=== PATIENT | female | born 1995 | race Caucasian/White ===

== ENCOUNTER 2024-02-04 10:06 | Emergency (ER) | payer OTHER, SELFPAY ==
[2024-02-04 10:14] VITALS: BP 150/100
--- NOTE | 2024-02-04 11:06 | ED.GENMED ---
History of Present Illness
<Alyce Devlin PA-C - Last Filed: 02/04/24 15:42>
General
Chief Complaint: Throat Problem
Source: patient and family
Exam Limitations: none
Time Seen by Provider: 02/04/24 11:03
Nursing documentation reviewed up to this point in time: agreed with
Travel History
Have you had any contact with someone who has COVID-19?: No
Do you have any symptoms of coronavirus? Fever > 100 degrees, chills, cough, shortness of breath, sore throat, loss of taste or smell, muscle aches, or headache?: No
History of Present Illness
History of Present Illness:
This is a 28 y/o female with no past medical history presenting to the ER today with sore throat and chest pain for the past 3 days. Patient states that when she woke up on Friday, she started to have a sore throat but thought nothing of it.
Then, she started to develop a lot of pain with swallowing, and she felt this pain in her chest. She also feels this pain when she takes a deep breath. She never had anything like this before. She also has runny nose and mild cough. She also has
associated mouth pain, molar pain, and mild jaw pain. She denies shortness of breath. She denies any headaches, nausea, vomiting. She states that she saw urgent care yesterday, and they tested her for strep which was negative. She was started on
a Z-Rocael at that time and is currently on day 2. She denies any sick contacts, denies any allergies to medications. She states that she started seeing a new boyfriend recently, but denies any chance of STD/STIs.
Past History
<Alyce Devlin PA-C - Last Filed: 02/04/24 15:42>
Past History
ED Past Medical History: None
ED Past Surgical History: None
Patient has exhibited threatening behavior?: No
Social History
Living: with family
Review of Systems
<Alyce Devlin PA-C - Last Filed: 02/04/24 15:42>
Review of Systems
All Other Systems: ROS reviewed and negative except as documented in HPI and ROS
Phy Exam
<Alyce Devlin PA-C - Last Filed: 02/04/24 15:42>
Physical Exam
Physical Exam:
General: Patient is well-appearing and in no acute distress
Skin: Warm and dry, no rashes or lesions
Head: normocephalic, atraumatic
Eyes: no conjunctival exudates, ROMs intact
Ears: no drainage from the external ear canals, no TM bulging or erythema
Throat: Pharyngeal erythema with 2 vesicular lesions, tonsillar hypertrophy, left sided white tonsillar exudates. No peritonsillar abscess. No uvular deviation. No trismus.
Neck: right sided anterior cervical lymphadenopathy, mobile, painful to palpation
Cardiac: regular rate and rhythm, no murmurs. no tenderness to palpation of external chest wall
Pulm: normal respiratory effort, no wheezes, rales, or rhonchi
Abdomen: no tenderness to palpation
Neuro: AAOx3.
Course
<Alyce Devlin PA-C - Last Filed: 02/04/24 15:42>
Orders/Labs/Results
Orders:
Orders
02/04/24 11:27
Electrocardiogram (*1) Urgent
Reason for Study: Chest Pain
EKG- Treatment ONCE
02/04/24 11:28
CR Chest - 2 Views Urgent
Comment:
Reason For Exam: chest pain
02/04/24 11:50
Complete Blood Count/With Diff Urgent
Comprehensive Metabolic Panel Urgent
Monotest Urgent
Rapid Strep Group A Urgent
CHRISTIAN Source: Throat/Pharynx
Specimen Description:
Date Specimen was Collected: 02/04/24
Time Specimen was Collected: 11:35
02/04/24 12:52
0.9% Sodium Chloride 1000 ml [Nss] 1,000 ml IV BOLUS
Dexamethasone Sod Phosphate [Decadron] 10 mg IV NOW STA
Ketorolac [Toradol] 15 mg IV NOW STA
02/04/24 13:04
Herpes Culture Reflex - Typing Urgent
CHRISTIAN Source: Lesion
Specimen Description:
Source:: THROAT/PHARYNX
02/04/24 13:31
Sucralfate Suspension [Carafate Suspension] 1 gm PO NOW STA
02/04/24 14:26
Ketorolac [Toradol] 15 mg IV NOW STA
Abnormal Lab Results
02/04/24
11:50
Absolute Monos (auto) 0.8 H 10^3/uL
(0.1-0.6)
Monocytes % 10.8 H %
(1.7-9.3)
02/04/24 11:50
02/04/24 11:50
Vital Signs
Initial and Last Documented VS:
Initial Vital Signs
Temp Pulse Resp BP Pulse Ox
99.3 F 114 20 150/100 97
02/04/24 10:14 02/04/24 10:14 02/04/24 10:14 02/04/24 10:14 02/04/24 10:14
Last Documented Vital Signs
Temp Pulse Resp BP Pulse Ox
99.3 F 114 20 150/100 97
02/04/24 10:14 02/04/24 10:14 02/04/24 10:14 02/04/24 10:14 02/04/24 10:14
Miladlt;Jw Burkett, DO - Last Filed: 02/04/24 14:17>
Orders/Labs/Results
Orders:
Orders
02/04/24 11:27
Electrocardiogram (*1) Urgent
Reason for Study: Chest Pain
EKG- Treatment ONCE
02/04/24 11:28
CR Chest - 2 Views Urgent
Comment:
Reason For Exam: chest pain
02/04/24 11:50
Complete Blood Count/With Diff Urgent
Comprehensive Metabolic Panel Urgent
Monotest Urgent
Rapid Strep Group A Urgent
CHRISTIAN Source: Throat/Pharynx
Specimen Description:
Date Specimen was Collected: 02/04/24
Time Specimen was Collected: 11:35
02/04/24 12:52
0.9% Sodium Chloride 1000 ml [Nss] 1,000 ml IV BOLUS
Dexamethasone Sod Phosphate [Decadron] 10 mg IV NOW STA
Ketorolac [Toradol] 15 mg IV NOW STA
02/04/24 13:04
Herpes Culture Reflex - Typing Urgent
CHRISTIAN Source: Lesion
Specimen Description:
Source:: THROAT/PHARYNX
02/04/24 13:31
Sucralfate Suspension [Carafate Suspension] 1 gm PO NOW STA
02/04/24 14:26
Ketorolac [Toradol] 15 mg IV NOW STA
Abnormal Lab Results
02/04/24
11:50
Absolute Monos (auto) 0.8 H 10^3/uL
(0.1-0.6)
Monocytes % 10.8 H %
(1.7-9.3)
02/04/24 11:50
02/04/24 11:50
Vital Signs
Initial and Last Documented VS:
Initial Vital Signs
Temp Pulse Resp BP Pulse Ox
99.3 F 114 20 150/100 97
02/04/24 10:14 02/04/24 10:14 02/04/24 10:14 02/04/24 10:14 02/04/24 10:14
Last Documented Vital Signs
Temp Pulse Resp BP Pulse Ox
99.3 F 114 20 150/100 97
02/04/24 10:14 02/04/24 10:14 02/04/24 10:14 02/04/24 10:14 02/04/24 10:14
<Alyce Devlin PA-C - Last Filed: 02/04/24 15:42>
MDM/Problems Addressed
Differential Diagnosis Includes:
ddx viral pharyngitis, strep pharyngitis, herpes infection, herpes esophagitis, pneumonia, costochondritis, gastritis
MDM/Problems Addressed:
sore throat
Chronic conditions affecting care:
n/a
Acute Exacerbation and/or Progression of Chronic Illness:
n/a
<Alyce Devlin PA-C - Last Filed: 02/04/24 15:42>
*Radiology
Radiology exam reviewed: preliminary read by ED provider (no acute cardiopulmonary disease)
*Pulse Oximetry
Patient hypoxic: no
*EKG
Interpreted by ED Provider?: Yes
EKG Intrepretation Date: 02/04/24
Interpretation: normal
Comparison EKG: no comparison EKG present
Heart Rate: 90
Rate: normal
Rhythm: sinus
[place]: normal axis
Interval: normal interval, normal QT interval and normal [place] interval
QRS Pattern: normal QRS
*Critical Care Note
Total Time (30-74mins, 75-104mins- exclusive of procedures): Not Applicable
Data Reviewed
Review of Other/Old Records Reveals: Records (reviewed ER physician documentation from 06/13/18) and Discharge Summary (no discharge summaries in [facility] to review )
Source: patient, records and family
Further Testing Considered But Not Given:
Considered CT neck for RN BABY evaluation however no obvious RN BABY on exam, no ulna deviation, no trismus
<LORENZO Davies Last Filed: 02/04/24 15:42>
Patient Management
Escalation/DeEscalation of care consider admission/obs:
This is a 28 y/o female with no past medical history presenting to the ER today with sore throat and chest pain for the past 3 days. Physical examination reveals anterior cervical lymphadenopathy, tonsillar hypertrophy and exudates, as well as
scattered vesicular lesion within the mouth and throat. EKG normal sinus rhythm, CXR reveals no acute intracranial abnormality, and monospot testing, strep throat testing is negative. HSV testing pending. Patient's symptoms improved with IV fluids
and toradol, however patient still has some pain. Patient's current symptoms likely reflect acute viral illness but will have patient follow up with ENT/GI to evaluate further for infections esophagitis/esophageal spasm, etc. Patient will be sent
home with steroid burst and carafate, stable for discharge.
ED Attending Note
<Alyce Devlin PA-C - Last Filed: 02/04/24 15:42>
-
Portions of this chart may have been created with voice recognition software.� Occasional wrong word or��sound alike� substitutions may have occurred due to the inherent limitations of voice recognition software.
<Jw Burkett DO - Last Filed: 02/04/24 14:17>
ED Attending Note
Patient seen and examined by attending physician: Yes
I performed the substantive portion of visit, reviewed & personally made and approve the management plan that is documented in note by myself or LOREE.: Yes
I performed a history and physical exam of patient and discussed management with resident, I reviewed resident's note and agree with documented findings and plan of care.: Yes
ED Attending Note:
I evaluated the patient at bedside. The patient's labs are normal including negative mono. She was given IV fluids and Toradol and Decadron. Will start steroids. She is already on azithromycin and will also try Carafate. She does have
left-sided exudate with no evidence of RN BABY on posterior oropharyngeal exam.
Discharge Plan
Departure
Patient Disposition: Home (Routine Discharge)
Date of Disposition: 02/04/24
Time of Disposition: 15:20
Patient with high blood pressure during this ER visit?: Yes
Condition: Good
Discharge Problem:
Chest pain, Pharyngitis
Instructions: Sore throat in adults, Chest Pain (DC)
Prescriptions:
New
sucralfate [Carafate] 100 mg/mL suspension
1 g PO TID Qty: 400 0RF
prednisone 20 mg tablet
40 mg PO DAILY 5 Days Qty: 10 0RF
No Action
norethindrone-e.estradiol-iron [Blisovi 24 Fe] 1 EACH tablet
1 ea PO DAILY
Referrals:
Evelyn Judge DO [Family Provider] -
Bina Jamison MD [Active] - Call in 1-3 days for appt
Cayetano Vasquez MD [Active] - Call in 1-3 days for appt
Activity Restrictions/Additional Instructions:
Please take 2 prednisone tablets once daily for 5 days (for a total of 40 mg per day).
We have also sent carafate to your pharmacy which you can take 1 g three times a day as needed for pain.
Please finish your azithromycin course prescribed by urgent care.
You will receive a call from GI office to set up an appointment. Please follow up.
We have also provided you with a referral for ENT.
Interventions
Interventions:
*Risk Screen - Suicide Last Done: 02/04/24 11:50
*General Assessment Last Done: 02/04/24 11:50
*Neglect/Abuse Screening Last Done: 02/04/24 11:50
*ED COVID-19 Vaccine History Last Done: 02/04/24 10:19
ED-EENT Assessment Last Done: 02/04/24 11:50
ED- Pulmonary Assessment Last Done: 02/04/24 11:50
[2024-02-04 11:57] LABS: % Basophils 0.8 % (0-2); % Eosinophils 0.6 % (0-6); % Immature Granulocytes 0.3 % (0-0.5); % Lymphocytes 22.9 % (20.5-51.1); % Monocytes 10.8 % (1.7-9.3); % Neutrophils 64.6 % (42.2-75.2); Absolute Basophils 0.1 10^3/uL (0-0.2); Absolute Lymphocytes 1.6 10^3/uL (1.2-3.4); Absolute Monocytes 0.8 10^3/uL (0.1-0.6); Absolute Neutrophils 4.6 10^3/uL (1.4-6.5); Hematocrit 43.2 % (37.0-47.0); Hemoglobin 15.7 g/dL (12.0-16.0); Mean Corp Hgb Conc. 36.3 g/dL (33.0-37.0); Mean Corpuscular Hgb 30.2 pg (27.0-31.0); Mean Corpuscular Volume 83.1 fL (81.0-99.0); Mean Platelet Volume 8.5 fL (7.4-10.4); Nucleated Red Blood Cells % 0 %; Platelet Count 304 10^3/uL (130-400); Red Cell Dist. Width 11.5 % (11.5-14.5); White Blood Cell Count 7.1 10^3/uL (4.8-10.8)
[2024-02-04 12:15] LABS: ALT (SGPT) 16 U/L (0-35); AST (SGOT) 21 U/L (14-36); Albumin 4.5 g/dl (3.5-5.0); Alkaline Phosphatase 67 U/L (38-126); Blood Urea Nitrogen 14 mg/dl (7-17); Calcium 9.3 mg/dl (8.4-10.2); Carbon Dioxide 27 mmol/L (22-30); Chloride 102 mmol/L (98-107); Glucose 89 mg/dl (70-99); Potassium 4.2 mmol/L (3.5-5.1); Sodium 137 mmol/L (135-145); Total Bilirubin 0.6 mg/dl (0.2-1.3); Total Protein 7.7 g/dl (6.3-8.2); eGFR > 60.00
[2024-02-04 12:35] LABS: Monotest Negative (Negative)
[2024-02-04] MEDS: DECADRON 10 MG IV (13:37)
[2024-02-04] MEDS: TORADOL 15 MG IV ×2 (13:38→14:35)
[2024-02-04] MEDS: NSS 1000 IV (13:38)
[2024-02-04] MEDS: CARAFATE SUSPENSION 1 GM PO (13:40)
== END 2024-02-04 15:51 | disposition home or self-care (01) ==
LOC: EMR 10:06
PROVIDERS: Physician Assistant; EMERGENCY PHYSICIAN Emergency Medicine; FAMILY PHYSICIAN Family Medicine
DX: J02.9 Acute pharyngitis, unspecified (principal); R07.9 Chest pain, unspecified; R03.0 Elevated blood-pressure reading, without diagnosis of hypertension
CPT/HCPCS: 99285; 96374; 96375; 96376; 71046; 80053; 85025; 86308; 87070; 87140; 87255; 87880; 93005

== ENCOUNTER 2024-02-05 18:20 | Emergency (ER) | payer OTHER, SELFPAY ==
[2024-02-05 18:26] VITALS: BP 141/97
[2024-02-05 18:53] LABS: % Basophils 0.2 % (0-2); % Immature Granulocytes 0.3 % (0-0.5); % Lymphocytes 13.2 % (20.5-51.1); % Monocytes 2.8 % (1.7-9.3); % Neutrophils 83.5 % (42.2-75.2); Absolute Immature Granulocytes 0.1 10^3/uL (0-0.05); Absolute Lymphocytes 1.9 10^3/uL (1.2-3.4); Absolute Monocytes 0.4 10^3/uL (0.1-0.6); Absolute Neutrophils 12.1 10^3/uL (1.4-6.5); Hematocrit 42.9 % (37.0-47.0); Hemoglobin 15.5 g/dL (12.0-16.0); Mean Corp Hgb Conc. 36.1 g/dL (33.0-37.0); Mean Corpuscular Hgb 29.7 pg (27.0-31.0); Mean Corpuscular Volume 82.2 fL (81.0-99.0); Mean Platelet Volume 8.7 fL (7.4-10.4); Nucleated Red Blood Cells % 0 %; Platelet Count 373 10^3/uL (130-400); Red Blood Cell Count 5.22 10^6/uL (4.20-5.40); Red Cell Dist. Width 11.5 % (11.5-14.5); White Blood Cell Count 14.5 10^3/uL (4.8-10.8)
[2024-02-05 19:09] LABS: ALT (SGPT) 18 U/L (0-35); AST (SGOT) 23 U/L (14-36); Albumin 4.7 g/dl (3.5-5.0); Alkaline Phosphatase 61 U/L (38-126); Blood Urea Nitrogen 20 mg/dl (7-17); Calcium 10.2 mg/dl (8.4-10.2); Carbon Dioxide 25 mmol/L (22-30); Chloride 104 mmol/L (98-107); Glucose 133 mg/dl (70-99); Potassium 4.4 mmol/L (3.5-5.1); Sodium 142 mmol/L (135-145); Total Bilirubin 0.6 mg/dl (0.2-1.3); Total Protein 8.3 g/dl (6.3-8.2); eGFR > 60.00
[2024-02-05 19:18] LABS: Troponin I < 0.012 ng/ml
--- NOTE | 2024-02-05 20:01 | ED.GENMED ---
Addendum entered and electronically signed by Andriy López PA-C 02/11/24 07:07:
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 She has been treated with Valtrex. No change in treatment needed
Original Note:
History of Present Illness
<Concha Field PA-C - Last Filed: 02/05/24 21:19>
General
Chief Complaint: Throat Problem
Source: patient
Exam Limitations: none
Time Seen by Provider: 02/05/24 19:36
Nursing documentation reviewed up to this point in time: agreed with
Travel History
Have you had any contact with someone who has COVID-19?: No
Do you have any symptoms of coronavirus? Fever > 100 degrees, chills, cough, shortness of breath, sore throat, loss of taste or smell, muscle aches, or headache?: Yes
Symptoms:: sore throat
History of Present Illness
History of Present Illness:
28 y/o F with no sig pmh
here with 3 days of oral mouth sores and painful swallowing even into her mid chest when she tries to drink
she was seen at urgent care 2 dyas ago and tested neg for strep and given zithormax. she then came yesterday because of having more pain in her chest with swallowing liquids/eating
she had herpes culture sent which is not resulted, was given steroids and toradol and felt better and was able to eat pizza
she has been using carafate suspension x 2 today and worse with
Past History
<Concha Field PA-C - Last Filed: 02/05/24 21:19>
Past History
ED Past Medical History: None
ED Past Surgical History: None
Patient has exhibited threatening behavior?: No
Social History
Living: with family
Phy Exam
<Concha Field PA-C - Last Filed: 02/05/24 21:19>
Physical Exam
Physical Exam:
GENERAL: Alert , in no apparent distress
EYE: pupils equal and reactive
NECK: Supple
ENT: b/l TM s clear, p
Patient has ulcerations and few vesicles on an erythematous base which are rounded on her mucosa sublingual, a few on her tongue, left lower gingival region next to her last molar and a few in the posterior pharynx, otherwise the pharynx does not
appear erythematous, she has no exudate, she has a slightly hoarse voice, tolerating her secretions well
CARDIAC: Regular rate and rhythm, no edema
LUNGS: Clear breath sounds bilaterally, no acute respiratory distress, no wheezes/rales/rhonchi, occ cough
SKIN: Warm and dry, skin intact. No skin lesions
MUSCULOSKELETAL: No edema, well perfused.
PSYCH: Normal and appropriate interaction.
Course
<Concha Field PA-C - Last Filed: 02/05/24 21:19>
Orders/Labs/Results
Orders:
Orders
02/05/24 18:29
Electrocardiogram (*1) Urgent
Reason for Study: Chest Pain
EKG- Treatment ONCE
02/05/24 18:42
Complete Blood Count/With Diff Urgent
Comprehensive Metabolic Panel Urgent
HIV Combo Urgent
Troponin I Urgent
02/05/24 19:53
Add On- LAB Urgent
Tests Added?: hiv
02/05/24 20:03
Valacyclovir HCl [Valtrex] 1,000 mg PO NOW STA
Viscous Lidocaine 2% [Xylocaine Viscous Cup] 15 ml PO NOW STA
Abnormal Lab Results
02/05/24
18:42
WBC 14.5 H 10^3/uL
(4.8-10.8)
Abs Immat Gran (auto) 0.1 H 10^3/uL
(0-0.05)
Absolute Neuts (auto) 12.1 H 10^3/uL
(1.4-6.5)
Neutrophils % 83.5 H %
(42.2-75.2)
Lymphocytes % 13.2 L %
(20.5-51.1)
BUN 20 H mg/dl
(7-17)
Glucose 133 H mg/dl
(70-99)
Total Protein 8.3 H g/dl
(6.3-8.2)
02/05/24 18:42
02/05/24 18:42
Vital Signs
Initial and Last Documented VS:
Initial Vital Signs
Temp Pulse Resp BP Pulse Ox
98.2 F 85 18 141/97 97
02/05/24 18:26 02/05/24 18:26 02/05/24 18:26 02/05/24 18:26 02/05/24 18:26
Last Documented Vital Signs
Temp Pulse Resp BP Pulse Ox
98.2 F 70 18 136/86 98
02/05/24 18:26 02/05/24 21:28 02/05/24 18:26 02/05/24 21:28 02/05/24 19:35
<Yordy Becerra, DO - Last Filed: 02/06/24 01:52>
Orders/Labs/Results
Orders:
Orders
02/05/24 18:29
Electrocardiogram (*1) Urgent
Reason for Study: Chest Pain
EKG- Treatment ONCE
02/05/24 18:42
Complete Blood Count/With Diff Urgent
Comprehensive Metabolic Panel Urgent
HIV Combo Urgent
Troponin I Urgent
02/05/24 19:53
Add On- LAB Urgent
Tests Added?: hiv
02/05/24 20:03
Valacyclovir HCl [Valtrex] 1,000 mg PO NOW STA
Viscous Lidocaine 2% [Xylocaine Viscous Cup] 15 ml PO NOW STA
Abnormal Lab Results
02/05/24
18:42
WBC 14.5 H 10^3/uL
(4.8-10.8)
Abs Immat Gran (auto) 0.1 H 10^3/uL
(0-0.05)
Absolute Neuts (auto) 12.1 H 10^3/uL
(1.4-6.5)
Neutrophils % 83.5 H %
(42.2-75.2)
Lymphocytes % 13.2 L %
(20.5-51.1)
BUN 20 H mg/dl
(7-17)
Glucose 133 H mg/dl
(70-99)
Total Protein 8.3 H g/dl
(6.3-8.2)
02/05/24 18:42
02/05/24 18:42
Vital Signs
Initial and Last Documented VS:
Initial Vital Signs
Temp Pulse Resp BP Pulse Ox
98.2 F 85 18 141/97 97
02/05/24 18:26 02/05/24 18:26 02/05/24 18:26 02/05/24 18:26 02/05/24 18:26
Last Documented Vital Signs
Temp Pulse Resp BP Pulse Ox
98.2 F 70 18 136/86 98
02/05/24 18:26 02/05/24 21:28 02/05/24 18:26 02/05/24 21:28 02/05/24 19:35
Miladlt;Concha Field PA-C - Last Filed: 02/05/24 21:19>
MDM/Problems Addressed
Differential Diagnosis Includes:
herpangina, thrush, hiv, viral infection
MDM/Problems Addressed:
28 y/o F with no chronic medical problems
here with painful oral lesions, odynophagia and some dysphagia to foods and liquids for the past few days
went to and tested neg for strep but given abx rregardless
came here yesterday and had herpes viral culture which is pending,
given fluids and steroids and toraodl and was able to eat pizza last night after carafate
today still having pain an dwas requesting to be scoped
she has no fever
no genital lesions
no exposures to HIV but is dating new male partner for epast few weeks and has only had protected sex
she does have a cold sore on outside ofher lip as well whic hs he has never had
d/w ed attenidng
pt does look pretty well
she is toelated secretions
her oral lesions are few but do look painful
it would be odd to have lesions within her esophagus --> added on HIV test
pt informed of this
but will empirically start valacyclovir
continues teroids
pt already has lidocaine viscous and also will be tiven t#3 for pain
offered IVF but she declined.
<Concha Field PA-C - Last Filed: 02/05/24 21:19>
*Critical Care Note
Total Time (30-74mins, 75-104mins- exclusive of procedures): Not Applicable
ED Attending Note
<Concha Field PA-C - Last Filed: 02/05/24 21:19>
-
Portions of this chart may have been created with voice recognition software.� Occasional wrong word or��sound alike� substitutions may have occurred due to the inherent limitations of voice recognition software.
<Yordy Becerra DO - Last Filed: 02/06/24 01:52>
ED Attending Note
I performed the substantive portion of visit, reviewed & personally made and approve the management plan that is documented in note by myself or LOREE.: Yes
Discharge Plan
Departure
Patient Disposition: Home (Routine Discharge)
Date of Disposition: 02/05/24
Time of Disposition: 20:54
Patient with high blood pressure during this ER visit?: No
Condition: Fair
Discharge Problem:
Acute herpangina
Instructions: Hand, Foot, and Mouth Disease (DC)
Prescriptions:
New
valacyclovir 1 gram tablet
1,000 mg PO BID Qty: 20 0RF
acetaminophen-codeine 120-12 mg/5 mL solution
10 ml PO BID PRN (Reason: Pain) 4 Days Qty: 80 0RF
No Action
norethindrone-e.estradiol-iron [Blisovi 24 Fe] 1 EACH tablet
1 ea PO DAILY
sucralfate [Carafate] 100 mg/mL suspension
1 g PO TID Qty: 400 0RF
prednisone 20 mg tablet
40 mg PO DAILY 5 Days Qty: 10 0RF
Referrals:
Evelyn Judge DO [Family Provider] - Follow up in 2-3 days
Activity Restrictions/Additional Instructions:
YOUR LESIONS APPEAR LIKE A VIRUS, LIKE THE VIRUS THAT CAUSES HAND FOOT AND MOUTH DISEASE AND ORAL HERPES
STOP THE ZITHROMAX (ANTIBIOTIC)
YOU CAN CONTINUE THE CARAFATE, THE LIDOCAINE, AND THE PREDNISONE
START VALACYCLOVIR 1 GRAM TWICE A DAY FOR 7-10 DAYS
YOU SHOULD SEE THE ENT OR GI DOCTOR FOR YOUR OTHER SYPMTOMS IN YOUR ESOPHAGUS
FOR PAIN YOU CAN TAKE IBUPROFEN 2-3 TIMES A DAY
FOR SEVERE PAIN YOU CAN TRY TYLENOL #3 WITH CODEINE SYRUP 2 TIMES A DAY NEEDED, THIS MAY MAKE YOU SLEEPY
DRINK FLUIDS
AVOID CITRUS AND SPICY AND ACIDIC FOODS (TOMATOES)
RETURN FOR: FEVER, VOMITING, TROUBLE BREATHING, WORSE ORAL LESIONS, INABILITY TO SWALLOW OR ANY CONCERNS
WE SENT AN HIV TEST JUST TO BE THOROUGH.
WE WILL CALL IF POSITIVE.
Interventions
Interventions:
*Risk Screen - Suicide Last Done: 02/05/24 18:26
*General Assessment Last Done: 02/05/24 18:26
*Neglect/Abuse Screening Last Done: 02/05/24 18:26
*ED COVID-19 Vaccine History Last Done: 02/05/24 18:26
*Nursing Disposition Last Done: 02/05/24 21:28
ED-EENT Assessment Last Done: 02/05/24 19:35
ED- Pulmonary Assessment Last Done: 02/05/24 19:35
Discharge Date and Time
Discharge Date/Time: 02/05/24 21:30
[2024-02-05] MEDS: XYLOCAINE VISCOUS CUP 15 ML PO (20:35)
[2024-02-05] MEDS: VALTREX 1000 MG PO (20:35)
[2024-02-05 20:43] VITALS: BP 136/86
[2024-02-05 21:28] VITALS: BP 136/86
[2024-02-06 10:39] LABS: HIV Combo Negative (Negative)
== END 2024-02-05 21:30 | disposition home or self-care (01) ==
LOC: EMR 18:20
PROVIDERS: Student in an Organized Health Care Education/Training Program; EMERGENCY PHYSICIAN Emergency Medicine; FAMILY PHYSICIAN Family Medicine
DX: B08.5 Enteroviral vesicular pharyngitis (principal)
CPT/HCPCS: 99284; 80053; 84484; 85025; 87389; 93005